=== PATIENT | male | born 1940 | race Caucasian/White ===

== ENCOUNTER 2019-06-15 06:45 | Day surgery (SDC) | payer OTHER ==
[2019-06-14 10:05] LABS: ALBUMIN 3.6 G/DL (3.4-5.0); ANION GAP 5 (8-16); BLOOD UREA NITROGEN 20 MG/DL (7-18); BUN/CREATININE RATIO 16.7 (5.4-32.0); CALCIUM 8.9 MG/DL (8.5-10.1); CHLORIDE 107 MMOL/L (99-107); GLUCOSE 100 MG/DL (70-104); POTASSIUM 4.9 MMOL/L (3.5-5.1); SODIUM 142 MMOL/L (135-145); TOTAL CARBON DIOXIDE 30.4 MMOL/L (24-32); eGFR 58 ML/MIN
[2019-06-14 10:10] LABS: BASOPHILS # (AUTO) 0.1 X10'3 (0-0.2); BASOPHILS % (AUTO) 0.9 % (0-1); EOSINOPHILS # (AUTO) 0.2 X10'3 (0-0.9); EOSINOPHILS % (AUTO) 3.3 % (0-6); HEMATOCRIT 48.3 % (42.0-52.0); HEMOGLOBIN 16.4 g/dl (14.0-17.9); LYMPHOCYTES # (AUTO) 2.7 X10'3 (1.1-4.8); LYMPHOCYTES % (AUTO) 35.6 % (21-51); MEAN CORPUSCULAR HEMOGLOBIN 31.1 PG (27.0-31.0); MEAN CORPUSCULAR HGB CONC 33.9 g/dL (33.0-36.5); MEAN CORPUSCULAR VOLUME 91.7 FL (78-98); MEAN PLATELET VOLUME 7.2 FL (7.4-10.4); MONOCYTES # (AUTO) 0.7 X10'3 (0-0.9); MONOCYTES % (AUTO) 9.4 % (2-12); NEUTROPHILS # (AUTO) 3.8 X10'3 (1.8-7.7); NEUTROPHILS % (AUTO) 50.8 % (42-75); PLATELET COUNT 183 X10'3 (140-440); RED BLOOD COUNT 5.27 X10'6 (4.70-6.10); RED CELL DISTRIBUTION WIDTH 14.4 % (11.5-14.5); WHITE BLOOD COUNT 7.6 X10'3 (4.5-11.0)
[2019-06-15] VITALS (16 sets, daily range): BP systolic 105–156; BP diastolic 67–114
[~2019-06-15] VITALS: Ht 177.8 cm; Wt 88.0 kg
[2019-06-15] MEDS ORDERED: ADV50100 IH (07:15)
[2019-06-15] MEDS ORDERED: SOTA80TA PO (07:15)
[2019-06-15] MEDS ORDERED: FLUT16SP2 BOTHNARES (07:15)
[2019-06-15] MEDS ORDERED: APIX5TAB3 PO (07:15)
[2019-06-15] MEDS ORDERED: normal saline 1000ml 1,000 ML IV SCH (07:20)
[2019-06-15] MEDS ORDERED: LORazepam 0.5 MG tablet PO ONE (07:20)
[2019-06-15] MEDS ORDERED: amiodarone in dextrose, iso-osm 150mg/100ml bag IV ONE (07:20)
[2019-06-15] MEDS ORDERED: morphine 10mg/ml inj. IV ONE (07:20)
[2019-06-15] MEDS ORDERED: diphenhydrAMINE 25mg capsule PO ONE (07:20)
[2019-06-15] MEDS ORDERED: MIDAZolam 5mg/ml 2ml vial IV ONE (07:20)
[2019-06-15] MEDS ORDERED: atropine 0.1mg/ml 10ml syringe IV ONE (07:20)
== END 2019-06-15 12:00 | disposition home or self-care (01) ==
LOC: SSTAY O 06:45
PROVIDERS: ATTEND Internal Medicine Cardiovascular Disease
DX: I48.0 Paroxysmal atrial fibrillation (principal); I10 Essential (primary) hypertension; Z79.899 Other long term (current) drug therapy; Z88.2 Allergy status to sulfonamides
CPT/HCPCS: 36415; 80048; 85025; 85610; 92960; 93005; J0282; J0461; J2250; J2270; J7030; Q0163